=== PATIENT | male | born 1985 | race Caucasian/White ===

== ENCOUNTER 2018-07-15 13:45 | Emergency (ER) | payer SELFPAY ==
[~2018-07-15] VITALS: Ht 193 cm; Wt 103.2 kg
[2018-07-15] MEDS ORDERED: ALPR0.5T8 PO (13:51)
[2018-07-15] MEDS ORDERED: BUPR75 PO (13:51)
[2018-07-15] MEDS ORDERED: LAMO100 PO (13:51)
[2018-07-15 16:02] LABS: AMPHET/METH SCREEN,URINE NEGATIVE (NEGATIVE); BARBITURATE SCREEN, URINE NEGATIVE (NEGATIVE); CANNABINOID SCREEN,URINE NEGATIVE (NEGATIVE); COCAINE SCREEN,URINE NEGATIVE (NEGATIVE); METHADONE SCREEN, URINE NEGATIVE (NEGATIVE); OPIATE SCREEN,URINE NEGATIVE (NEGATIVE); PHENCYCLIDINE SCREEN,URINE NEGATIVE (NEGATIVE)
[2018-07-15 16:03] LABS: BENZODIAZEPINES SCREEN,URINE POSITIVE (NEGATIVE)
[2018-07-15 16:30] VITALS: BP 130/76
== END 2018-07-15 17:16 | disposition home or self-care (01) ==
LOC: EMS 13:47
DX: F41.9 Anxiety disorder, unspecified (principal); F31.9 Bipolar disorder, unspecified; F17.210 Nicotine dependence, cigarettes, uncomplicated; Z76.0 Encounter for issue of repeat prescription; Z79.899 Other long term (current) drug therapy
CPT/HCPCS: 93005